=== PATIENT | female | born 1985 | race Caucasian/White ===

== ENCOUNTER → 2016-10-05 | Outpatient (CLI) | payer BC ==
[~2016-10-05] MED LIST: PRENTAB26 PO
[2016-10-05 11:53] LABS: URINE APPEARANCE CLEAR (CLEAR); URINE BILIRUBIN NEG (NEG); URINE COLOR YELLOW; URINE NITRITE NEG (NEG); URINE PH 7.5 (4.5-7.5); URINE SPECIFIC GRAVITY 1.005 (1.000-1.030); UROBILINOGEN NEG (NEG)
[2016-10-05 12:00] LABS: MANUAL MICROSCOPIC REQUIRED? NO; REVIEW REQ? NO
== END | disposition home or self-care (01) ==
LOC: C.LABSPEC 11:15
PROVIDERS: ATTEND Obstetrics & Gynecology
DX: Z34.00 Encounter for supervision of normal first pregnancy, unspecified trimester (principal)

== ENCOUNTER → 2016-10-12 | Outpatient (CLI) | payer BC ==
[2016-10-12 09:56] LABS: BASO % 0.3 %; BASO ABS # 0.03 K/uL (0-0.2); COMPLETE YES; EOS % 1.2 %; HEMATOCRIT 35.6 % (37-47); IG% 0.2 %; LYMPH % 16.1 %; LYMPH ABS # 1.69 K/uL (1.2-3.4); MEAN CORPUSCULAR HEMOGLOBIN 29.1 pg (25-34); MEAN CORPUSCULAR HGB CONC 35.1 g/dl (32-36); MEAN PLATELET VOLUME 10.5 fL (7.4-10.4); MONO % 7.7 %; NEUT % 74.5 %; PLATELET COUNT 265 K/uL (130-400); RED BLOOD COUNT 4.29 M/uL (4.2-5.4); WHITE BLOOD COUNT 10.48 K/uL (4.8-10.8)
[2016-10-14 01:41] LABS: CHLAMYDIA TRACH RNA*** NOT DETECTED (NOT DETECTED); GC (NEIS GONORRHOEAE)RNA** NOT DETECTED (NOT DETECTED)
== END | disposition home or self-care (01) ==
LOC: C.LAB1850 08:57
PROVIDERS: ATTEND Obstetrics & Gynecology
DX: Z34.00 Encounter for supervision of normal first pregnancy, unspecified trimester (principal)

== ENCOUNTER → 2016-10-16 | Outpatient (CLI) | payer BC ==
--- NOTE | 2016-10-16 13:03 | MAMMOGRAPHY REPORT ---
ULTRASOUND OF RIGHT BREAST: 10/16/2016 CLINICAL HISTORY: The patient reports that her doctor felt a palpable lump in the right breast durin g a physical exam. She reports that she is 9 weeks . Her mother was diagnosed with breast cancer in her 40s. COMPARISON: No prior exams were available for comparison. TECHNIQUE: Real-time targeted ultrasound of the right breast was performed. FINDINGS: Real-time, high-resolution targeted ultrasound was performed of the area of the palpable lump pointed out by the patient. She could not clearly feel the palpable lump but pointed to the ge neral region of the lump in the right 6:00 breast (the physician order did not note a specific locat ion). Targeted ultrasound of the right 6 through 9:00 breast demonstrates no suspicious masses or o ther suspicious sonographic abnormalities. The patient also noted pain in the right 9:00 and 6:00 r egion; ultrasound shows no suspicious abnormalities in the region of pain. IMPRESSION: ACR BI-RADS CATEGORY 1: NEGATIVE No suspicious sonographic abnormality in the general region of the palpable lump pointed out by the patient in the right 6:00 breast. There is no sonographic evidence of malignancy. Recommend clinic al follow-up; any decision to biopsy should be based on clinical grounds. The patient was verbally notified of the results. Matilda Hong M.D. /:10/16/2016 10:22:30 Branding Specialist: Matilda Hong MD, [facility] letter sent: Normal 1/2 BI-RADS Code: ACR BI-RADS Category 1: Negative
== END | disposition home or self-care (01) ==
LOC: C.MAMM 09:46
PROVIDERS: ATTEND Obstetrics & Gynecology
DX: O26.891 Other specified pregnancy related conditions, first trimester (principal); N63 Unspecified lump in breast; Z3A.01 Less than 8 weeks gestation of pregnancy

== ENCOUNTER → 2016-11-09 | Outpatient (CLI) | payer BC ==
[2016-11-10 11:30] LABS: URINE APPEARANCE CLEAR (CLEAR); URINE BILIRUBIN NEG (NEG); URINE COLOR YELLOW; URINE NITRITE NEG (NEG); URINE SPECIFIC GRAVITY 1.013 (1.000-1.030); UROBILINOGEN NEG (NEG)
[2016-11-10 11:31] LABS: MANUAL MICROSCOPIC REQUIRED? YES; REVIEW REQ? NO; URINE BACTERIA NEG (NEG); URINE RBC 0-4 /hpf (0-4)
== END | disposition home or self-care (01) ==
LOC: C.LABSPEC 11:05
PROVIDERS: ATTEND Obstetrics & Gynecology
DX: Z34.00 Encounter for supervision of normal first pregnancy, unspecified trimester (principal)

== ENCOUNTER → 2016-12-08 | Outpatient (CLI) | payer BC ==
[2016-12-08 13:33] LABS: GTGD 50 Grams
== END | disposition home or self-care (01) ==
LOC: C.LAB1850 08:53
PROVIDERS: ATTEND Obstetrics & Gynecology
DX: Z34.02 Encounter for supervision of normal first pregnancy, second trimester (principal)

== ENCOUNTER → 2016-12-14 | Outpatient (CLI) | payer BC ==
[2016-12-15 14:38] LABS: AFP CONCENTRATION 48.6 NG/ML; AFP MULTIPLE OF MEDIAN 1.13; AFPTS GESTATIONAL AGE 17.3 WEEKS; AFPTS INSULIN DEP DIABETIC? NO; AFPTS MATERNAL WT 129 LBS; ALPHA-FETOPROTEIN RACE CAUCASIAN=W; HISTORY OF NTD NO; REPEAT SAMPLE? NO
== END | disposition home or self-care (01) ==
LOC: C.LAB1850 07:23
PROVIDERS: ATTEND Obstetrics & Gynecology
DX: O28.9 Unspecified abnormal findings on antenatal screening of mother (principal); Z3A.00 Weeks of gestation of pregnancy not specified

== ENCOUNTER 2017-02-01 17:19 | Emergency (ER) | payer BC, OTHER ==
[~2017-02-01] VITALS: Ht 162.6 cm; Wt 62.6 kg
[2017-02-01 17:33] VITALS: Ht 162.6 cm; Wt 62.6 kg
[2017-02-01] MEDS ORDERED: PRENTAB26 PO (17:56)
[2017-02-01 18:50] LABS: BASO % 0.4 %; BASO ABS # 0.04 K/uL (0-0.2); COMPLETE YES; EOS % 1.7 %; HEMATOCRIT 31.8 % (37-47); IG% 0.5 %; LYMPH % 19.4 %; LYMPH ABS # 2.18 K/uL (1.2-3.4); MEAN CELL VOLUME 88.8 fL (80-100); MEAN CORPUSCULAR HEMOGLOBIN 29.9 pg (25-34); MEAN CORPUSCULAR HGB CONC 33.6 g/dl (32-36); MEAN PLATELET VOLUME 10.5 fL (7.4-10.4); MONO % 9.2 %; NEUT % 68.8 %; PLATELET COUNT 207 K/uL (130-400); RED BLOOD COUNT 3.58 M/uL (4.2-5.4); WHITE BLOOD COUNT 11.25 K/uL (4.8-10.8)
[2017-02-01 18:50] LABS: MANUAL MICROSCOPIC REQUIRED? NO; REVIEW REQ? NO; URINE APPEARANCE CLEAR (CLEAR); URINE BILIRUBIN NEG (NEG); URINE COLOR YELLOW; URINE NITRITE NEG (NEG); URINE PH 6.5 (4.5-7.5); URINE SPECIFIC GRAVITY 1.011 (1.000-1.030); UROBILINOGEN NEG (NEG); ZZUR CULT IF INDIC CLEAN CATCH NO
[2017-02-01 19:13] LABS: ALT/SGPT 16 U/L (12-78); AST/SGOT 11 U/L (15-37); BLOOD UREA NITROGEN 11 mg/dl (7-18); BUN/CREATININE RATIO 18.3 (10-20); CALCIUM 8.8 mg/dl (8.5-10.1); CARBON DIOXIDE 26 mmol/L (21-32); CHLORIDE 107 mmol/L (98-107); GLUCOSE 78 mg/dl (70-99); POTASSIUM 3.9 mmol/L (3.5-5.1); SODIUM 140 mmol/L (136-145)
[2017-02-01 19:16] LABS: ALKALINE PHOSPHATASE 69 U/L (45-117)
[2017-02-01 19:59] VITALS: BP 128/74; PULSE 74; TEMP 36.6; O2SAT 100
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
== END 2017-02-01 20:00 | disposition home or self-care (01) ==
LOC: C.EDB 17:21 → C.EDA 20:00
DX: S39.91XA Unspecified injury of abdomen, initial encounter (principal); O9A.212 Injury, poisoning and certain other consequences of external causes complicating pregnancy, second trimester; Z3A.24 24 weeks gestation of pregnancy; V43.52XA Car driver injured in collision with other type car in traffic accident, initial encounter

== ENCOUNTER → 2017-03-01 | Outpatient (CLI) | payer BC ==
[2017-03-01 18:24] LABS: URINE APPEARANCE CLEAR (CLEAR); URINE BILIRUBIN NEG (NEG); URINE COLOR YELLOW; URINE NITRITE NEG (NEG); URINE SPECIFIC GRAVITY 1.016 (1.000-1.030); UROBILINOGEN NEG (NEG)
[2017-03-01 18:27] LABS: MANUAL MICROSCOPIC REQUIRED? NO; REVIEW REQ? NO
== END | disposition home or self-care (01) ==
LOC: C.LABSPEC 17:55
PROVIDERS: ATTEND Obstetrics & Gynecology
DX: Z34.02 Encounter for supervision of normal first pregnancy, second trimester (principal)

== ENCOUNTER → 2017-03-05 | Outpatient (CLI) | payer BC ==
[2017-03-05 09:34] LABS: HEMATOCRIT 33.9 % (37-47)
== END | disposition home or self-care (01) ==
LOC: C.LAB1850 07:12
PROVIDERS: ATTEND Obstetrics & Gynecology
DX: Z34.02 Encounter for supervision of normal first pregnancy, second trimester (principal)

== ENCOUNTER 2017-04-26 17:21 | Outpatient (CLI) | payer BC ==
[~2017-04-26] VITALS: Ht 162.6 cm; Wt 69.0 kg
[2017-04-26 18:18] VITALS: Ht 162.6 cm; Wt 69.0 kg
== END 2017-04-26 18:21 | disposition home or self-care (01) ==
LOC: C.OPB 17:21 → C.LD 17:22 → C.OPB 18:21
PROVIDERS: ATTEND Obstetrics & Gynecology
DX: O24.419 Gestational diabetes mellitus in pregnancy, unspecified control (principal); O36.5990 Maternal care for other known or suspected poor fetal growth, unspecified trimester, not applicable or unspecified; Z3A.00 Weeks of gestation of pregnancy not specified

== ENCOUNTER → 2017-04-26 | Outpatient (CLI) | payer BC | END | disposition home or self-care (01) | LOC: C.LABSPEC 18:03 | PROVIDERS: ATTEND Obstetrics & Gynecology | DX: Z34.03 Encounter for supervision of normal first pregnancy, third trimester (principal); Z3A.00 Weeks of gestation of pregnancy not specified ==

== ENCOUNTER 2017-04-29 10:21 | Inpatient (IN) | payer BC ==
[~2017-04-29] VITALS: Ht 162.6 cm; Wt 68.2 kg
[2017-04-29 10:47] VITALS: Ht 162.6 cm; Wt 68.2 kg
--- NOTE | 2017-04-29 14:15 | DIAGNOSTIC IMAGING REPORT ---
ULTRASOUND BIO PROF W/O NST-SINGLE CLINICAL HISTORY: nonreassuring FHT, IUGR COMPARISON STUDY: No previous studies for comparison. FINDINGS: A single live fetus in cephalic presentation was identified. The placenta was right posterior. The heart rate was 126. The cervix was closed. The fluid index is 19 cm. The fetus received 2 points for flexion, tone, breathing, and fluid. IMPRESSION: Biophysical profile score of 8 out of 8 points Electronically signed by: Willem Alvarez M.D. 04/29/2017 2:13 PM Dictated Date/Time: 04/29/2017 2:11 PM
[2017-04-29] MEDS ORDERED: LACTATED RINGER'S 1000ML 1,000 ML IV PRN (20:33)
[2017-04-29 21:00] LABS: HEMATOCRIT 33.8 % (37-47); MEAN CELL VOLUME 86.2 fL (80-100); MEAN CORPUSCULAR HEMOGLOBIN 29.6 pg (25-34); MEAN CORPUSCULAR HGB CONC 34.3 g/dl (32-36); MEAN PLATELET VOLUME 11.7 fL (7.4-10.4); PLATELET COUNT 172 K/uL (130-400); RED BLOOD COUNT 3.92 M/uL (4.2-5.4); WHITE BLOOD COUNT 13.23 K/uL (4.8-10.8)
[2017-04-30] MEDS ORDERED: LACTATED RINGER'S 1000ML 500 ML IV PRN ×2 (07:05→10:19)
[2017-04-30] MEDS ORDERED: OXYTOCIN 30 UNITS/500ML NSS IV PRN ×2 (07:15→15:15)
[2017-04-30] MEDS: LACTATED RINGER'S 1000ML 1,000 ML IV SCH ×2 (08:02→10:28)
[2017-04-30] MEDS ORDERED: FENTANYL 2MCG/ML ROPIV 1.25MG/ML 100ML BAG EPI ONE (09:25)
[2017-04-30] MEDS ORDERED: FENTANYL CITRATE INJ 50 MCG/1 ML 2 ML VIAL ONE (09:25)
[2017-04-30] MEDS ORDERED: BUPIVACAINE 0.25% 30 ML VIAL ONE (09:25)
[2017-04-30] MEDS ORDERED: EpHEDrine SULFATE INJ 50 MG/ML AMP ONE (09:25)
[2017-04-30] MEDS ORDERED: NALOXONE HCL INJ 1 MG in SODIUM CHLORIDE 0.9% 1000ML 1,000 ML IV PRN ×4 (10:19)
[2017-04-30] MEDS ORDERED: EpHEDrine SULFATE INJ 50 MG/ML AMP IV PRN (10:30)
[2017-04-30] MEDS ORDERED: NALBUPHINE HCL INJ 10 MG/ML AMP IV PRN (10:30)
[2017-04-30] MEDS ORDERED: FENTANYL 2MCG/ML ROPIV 1.25MG/ML 100ML BAG EPI PRN (10:30)
[2017-04-30] MEDS ORDERED: DiphenhydrAMINE HCL 50 MG/ML VIAL IV PRN (10:30)
[2017-04-30] MEDS ORDERED: ONDANSETRON INJ 2 MG/ML 2 ML VIAL IV PRN (10:30)
[2017-04-30] MEDS ORDERED: NALOXONE HCL INJ 0.4 MG/1 ML VIAL/CARP IV PRN (10:30)
[2017-04-30] MEDS ORDERED: PROMETHAZINE HCL INJ 25 MG in SODIUM CHLORIDE 0.9% 50ML 50 ML IV PRN (10:30)
[2017-04-30] MEDS ORDERED: OXYCODONE/ACETAMINOPHEN 5-325 TAB PO PRN (15:15)
[2017-04-30] MEDS ORDERED: SUPERCREAM 0.870 % 15GM JAR EXT PRN (15:15)
[2017-04-30] MEDS ORDERED: HYDROCORTISONE ACETATE 25 MG SUPP PR PRN (15:15)
[2017-04-30] MEDS ORDERED: ACETAMINOPHEN/CODEINE 300/30MG TAB PO PRN ×2 (15:15)
[2017-04-30] MEDS ORDERED: ACETAMINOPHEN 325 MG TAB PO PRN (15:15)
[2017-04-30] MEDS ORDERED: LANOLIN OINT EXT PRN ×2 (15:15)
[2017-04-30] MEDS ORDERED: BENZOCAINE 20% AER SPR 82.5 GM CAN EXT PRN (15:15)
[2017-04-30] MEDS ORDERED: DIPHTHERIA/TETANUS/PERTUSSIS 0.5 ML SYR/VIAL IM. ONE (15:15)
--- NOTE | 2017-04-30 15:22 | DELIVERY SUMMARY ---
DATE OF OPERATION: 04/30/2017 INDICATIONS FOR PROCEDURE: Maribel was induced by Dr. Stallworth on April 29. She delivered on April 30. She was induced for IUGR and a nonreassuring heart rate tracing. She was 36 weeks and 6 days. This was a nonelective induction. DESCRIPTION OF PROCEDURE: The patient was given IV Pitocin and then progressed to fully dilated, delivered a baby in right occiput anterior position. Clear fluid. No nuchal cord. Mouth and nares suctioned with bulb and then baby delivered with gentle traction, no excess force used, live vigorous female infant. Cord clamped and cut. Cord gases obtained. Cord blood obtained. Cord collection performed. Placenta removed with gentle traction. Second degree tear repaired with 3-0 Vicryl. Sponge and instrument counts correct. Estimated blood loss 150 mL. IV Pitocin used for hemostasis. I attest to the content of the Intraoperative Record and any orders documented therein. Any exception s are noted below.
--- NOTE | 2017-04-30 18:00 | Anesthesia Procedure Note ---
Anesthesia Epidural Removal Nt Date & Time Apr 30, 2017 at 17:59 Vital Signs Pain Intensity: 10.0 Notes Mental Status: alert / awake / arousable, participated in evaluation Nausea / Vomiting: adequately controlled Pain: adequately controlled Airway Patency, RR, SpO2: stable & adequate BP & HR: stable & adequate Hydration State: stable & adequate Neuraxial Anesthesia: was administered Anesthetic Complications: no major complications apparent, pt satisfied with anesthetic care Epidural: removed without complications, with tip intact
[2017-04-30] MEDS: IBUPROFEN 600 MG TAB PO PRN (18:55)
[2017-04-30] MEDS: DOCUSATE SODIUM 100 MG CAP PO SCH (20:23)
[2017-04-30 20:30] VITALS: BP 117/78; PULSE 70; TEMP 36.9; O2SAT 98
[2017-04-30 23:50] VITALS: BP 122/77; PULSE 68; TEMP 36.5; O2SAT 98
[2017-05-01] MEDS: IBUPROFEN 600 MG TAB PO PRN ×7 (00:01→23:58)
[2017-05-01 04:05] VITALS: BP 124/77; PULSE 66; TEMP 36.5
[2017-05-01 06:56] VITALS: BP 126/86; PULSE 84; TEMP 36.7; O2SAT 98
--- NOTE | 2017-05-01 07:26 | Progress Note ---
Subjective May 01, 2017. Subjective conversation w/ patient, physical exam, chart review, lab review Ambulation: limited ambulation (to bathroom thus far) Voiding: no voiding problems Passing Gas: Yes Diet Tolerance: Clear Liquids Lochia: Small Feeding Type: Breast Feeding Pain: Notes some minimal low abd cramping Comment: Found pt resting comfortably, denies any acute concerns. Review of Systems Constitutional: No fever, No chills Respiratory: No cough, No shortness of breath Cardiac: No chest pain, No edema Abdomen: No nausea, No vomiting, No diarrhea Female : No dysuria Objective Vital Signs Date Time Temp Pulse Resp B/P (MAP) Pulse Ox O2 Delivery O2 Flow Rate FiO2 05/01/17 04:05 36.5 66 19 124/77 (93) Room Air 04/30/17 23:50 98 Room Air 04/30/17 23:50 36.5 68 20 122/77 (92) Room Air 04/30/17 20:30 36.9 70 18 117/78 (91) 98 Room Air 04/30/17 20:30 Room Air Physical Exam General Appearance: WELL-APPEARING, WD/WN, NO APPARENT DISTRESS Respiratory/Chest: lungs clear, normal breath sounds, no respiratory distress Cardiovascular: regular rate, rhythm, no edema, no murmur Abdomen: normal bowel sounds, non tender, soft Fundus: Firm, Non-Tender, Relation to Umbilicus (approx one down) Extremities: normal range of motion, no pedal edema, no calf tenderness Laboratory Results Last 24 Hours Test 05/01/17 06:58 Assessment and Plan Post- Day#: 1 Continue Routine Care: 31F s/p vaginal delivery, now PPD #1. - Blood type O positive. GBS negative. Rubella immune. - Vital signs reviewed and stable. - Pain controlled with motrin. - No leg swelling or tenderness on calf palpation. Encourage ambulation. - Encourage breast feeding. - Hemoglobin pre-delivery 11.6, post-delivery pending this am. Bleeding has improved. Continue to monitor clinically. - Continue routine post-vaginal delivery care. - Pt agreed with above plan, all current questions answered. Robert Browning MD, PGY1 [employer] Laboratory Assistant Physician Supervision Note: I interviewed and examined the patient. Discussed with Dr. Browning and agree with findings and plan as documented in the note. Any exceptions or clarifications are listed here: Agree Documented By: Laureen Ramirez Resident Tracking Resident Involvement: Resident Care Provided Care Provided: OB Delivery (OB rounds)
[2017-05-01 07:32] LABS: HEMATOCRIT 34.3 % (37-47)
[2017-05-01] MEDS: PRENATAL VITAMIN TAB PO SCH (07:43)
[2017-05-01] MEDS: DOCUSATE SODIUM 100 MG CAP PO SCH ×2 (07:43→19:27)
[2017-05-01 11:19] VITALS: BP 123/76; PULSE 66; TEMP 36.4; O2SAT 100
[2017-05-01 15:55] VITALS: BP 115/76; PULSE 65; TEMP 36.7
[2017-05-01] MEDS ORDERED: BISACODYL 5 MG TABEC PO SCH (20:00)
[2017-05-01 23:59] VITALS: BP 115/73; PULSE 66; TEMP 36.5
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
--- NOTE | 2017-05-02 06:34 | Discharge Instructions ---
Discharge Instructions Date of Service May 02, 2017. Admission Reason for Admission: [place], , Non-Reassuring Electronic Discharge Discharge Diagnosis / Problem: Discharge Goals Goal(s): Routine recovery after delivery Activity Recommendations Activity Limitations: per Instructions/Follow-up section . Instructions / Follow-Up Instructions / Follow-Up ACTIVITY RECOMMENDATIONS: * Gradual return to full activity over the next 2-3 weeks. * No lifting - nothing heavier than baby over the next 2-3 weeks. * Do not engage in vigorous exercise, sexual activity or sports until cleared by your physician. * Do not drive or operate any motorized equipment until cleared by your physician. * You may shower/bathe daily. MEDICATIONS: For discomfort or pain, you may use Acetaminophen (Tylenol), Ibuprofen (Advil), or Naproxen (Aleve) following the package directions. For constipation you may use Colace following the package directions. BREAST CARE: If you are not breast feeding: * Wear a supportive bra 24 hours a day for one to two weeks. * Avoid stimulating your breasts and nipples as much as possible during the first few weeks after delivery. * When taking a shower, have the warm water hit your back, not breasts. * When your breasts feel full, apply ice packs. Usually three to four times a day helps ease the discomfort. * Take a mild pain medication (Tylenol / Motrin) when you are uncomfortable. If breast feeding: * Use breast milk to lubricate nipples. Lansinoh cream may be used for sore nipples. You do not need to remove cream prior to breast feeding. If using a different brand of cream, check the label for directions regarding removal of cream prior to nursing. * Wear a supportive bra. * If having problems with breasts or breast feeding, call a medical device sales consultant or your health care provider. EPISIOTOMY CARE: After delivery, if you have an episiotomy (stitches), the following steps will ease discomfort and aid healing. * For the first 24 hours after delivery, place ice packs next to your episiotomy to help reduce swelling. * After the first 24 hour-period, sitz baths, either portable or in the tub, are suggested. A shower with a shower arm sprayed over the episiotomy may be comforting. * Lorena care should be done after each voiding and bowel movement. Squirt warm water from a plastic bottle over the perineum (region of the body between the anus and urinary opening) and pat dry. * Use Dermoplast to ease discomfort. Shake container. [place] directly over the episiotomy. Place a Tucks on a clean sanitary pad next to your episiotomy. SPECIAL CARE INSTRUCTIONS: When you are discharged from the hospital, it is important for you to follow the instructions listed below: * During the first week at home, you should be able to care for yourself and your baby. In addition, the usual light household activities are encouraged. * Limit your activities to the way you feel. Do not try to clean the house or move furniture. Be sensible. * If you actively engage in sports and have done so up until the time of your delivery, you may resume these activities as soon as you feel able. This may take up to one month or even longer. Use good judgment. * Continue to take your vitamins for at least six weeks after the of your baby. * Your diet need not be limited unless you were on a special diet before your delivery. Breast-feeding mothers need around 2500 calories per day and at least 64-80 ounces of fluid per day (8 to 10 glasses). * You should eat foods from the four major food groups. Crash diets or fad diets are to be avoided. Eating lean meats, fresh fruits and vegetables, low-fat dairy products, high fiber foods and a regular exercise program, will help you get back to your pre- weight without putting your health at risk. * Constipation is sometimes a problem after delivery. Take a mild laxative as needed. If breast feeding, Milk of Magnesia is acceptable to use. You may use a suppository or Fleets enema if no episiotomy. * A daily shower or tub bath is suggested. Be sure to thoroughly and gently dry the perineum. * A bloody vaginal discharge will usually continue until around four weeks post . A small amount of bleeding may continue for as long as six weeks. Vaginal discharge changes from the bright red bleeding after delivery to pink then brownish and finally yellowish-pink before becoming white and disappearing. * Bleeding may increase with activity. Your first period may come in 4-8 weeks. If you are breast feeding, your period may be delayed even longer. * [place] (sex) can begin whenever both you and your partner feel comfortable and do not have any form of genital infection. It is recommended that you wait at least six weeks for internal and external healing to occur. If you have questions, please talk to your health care practitioner. A condom should be used to prevent infection and . * Foreplay, gentle intercourse and lubrication is very important the first several times to prevent pain. A water-based lubricant such as K-Y jelly or Astroglide may be used. * If you have RH negative blood and your baby is RH positive, you will receive RHOGAM by injection prior to discharge. The nurse will give you a card to keep with you that has the date and place that you received RHOGAM after delivery. * During your care, you had a Rubella screen done to check for the presence of rubella antibodies in your blood. If your test was negative, you will receive a Rubella vaccine prior to discharge. This vaccine may cause a fever, soreness at the injection site and flu-like symptoms. If these symptoms persist, notify your health care practitioner. is not advised for one month after a Rubella vaccine. * Verbalizes understanding of car seat law as reviewed with patient nursing. * Car Seat hand-out given and reviewed with patient by nursing. * Shaken baby information reviewed with patient by nursing. Call you doctor if: * Heavy bleeding (saturating several pads an hour) or passing clots the size of your fist. * A fever >101 degrees F (38.3 degrees C) on two occasions four hours apart and /or chills. * Unusual pain in the pelvic or vaginal areas. * "Baby Blues" lasting longer than two weeks. If you have any questions or concerns, call your health care practitioner at . FOLLOW UP VISIT: * Please call the office at to schedule a 6 week examination. It is important you keep this appointment. It is important for you to make arrangements for either yearly or twice yearly check-ups thereafter. Current Hospital Diet Patient's current hospital diet: Regular OB Diet Discharge Diet Recommended Diet: Regular OB Diet Pending Studies Studies pending at discharge: no Medical Emergencies . Who to Call and When: Medical Emergencies: If at any time you feel your situation is an emergency, please call 911 immediately. . Non-Emergent Contact Non-Emergency issues call your: Sand Conditioner . . "Provider Documentation" section prepared by Luke Cabrera. . VTE Core Measure Inpt VTE Proph given/why not?: Treatment not indicated
[2017-05-02 06:53] LABS: HEMATOCRIT 29.1 % (37-47); MEAN CELL VOLUME 87.4 fL (80-100); MEAN CORPUSCULAR HEMOGLOBIN 29.7 pg (25-34); MEAN PLATELET VOLUME 10.8 fL (7.4-10.4); PLATELET COUNT 168 K/uL (130-400); RED BLOOD COUNT 3.33 M/uL (4.2-5.4); WHITE BLOOD COUNT 8.89 K/uL (4.8-10.8)
[2017-05-02] MEDS ORDERED: BISACODYL 10 MG SUPP PR PRN (07:00)
[2017-05-02] MEDS: IBUPROFEN 600 MG TAB PO PRN ×2 (07:43→13:14)
[2017-05-02 07:50] VITALS: BP 121/75; PULSE 85; TEMP 36.5
[2017-05-02] MEDS: PRENATAL VITAMIN TAB PO SCH (08:00)
[2017-05-02] MEDS: DOCUSATE SODIUM 100 MG CAP PO SCH (08:00)
== END 2017-05-02 17:10 | disposition home or self-care (01) | DRG 775 ==
LOC: C.LD 10:21 → C.OPB 10:21 → C.LD 20:33 → C.OPB 20:33 → C.OBG 04-30 19:54
PROVIDERS: ADMIT Obstetrics & Gynecology; ATTEND Obstetrics & Gynecology
PROC: 3E0P7GC Introduction of Other Therapeutic Substance into Female Reproductive, Via Natural or Artificial Opening (ICD-10-PCS; 2017-04-29)
PROC: 10E0XZZ Delivery of Products of Conception, External Approach (ICD-10-PCS; principal; 2017-04-30)
PROC: 0KQM0ZZ Repair Perineum Muscle, Open Approach (ICD-10-PCS; principal; 2017-04-30)
DX: O76 Abnormality in fetal heart rate and rhythm complicating labor and delivery (principal); S39.91XA Unspecified injury of abdomen, initial encounter; O36.5930 Maternal care for other known or suspected poor fetal growth, third trimester, not applicable or unspecified; O9A.22 Injury, poisoning and certain other consequences of external causes complicating childbirth; O70.1 Second degree perineal laceration during delivery; Z37.0 Single live birth; O24.420 Gestational diabetes mellitus in childbirth, diet controlled; Z3A.36 36 weeks gestation of pregnancy; V49.9XXA Car occupant (driver) (passenger) injured in unspecified traffic accident, initial encounter

== ENCOUNTER → 2018-03-02 | Outpatient (CLI) | payer OTHER ==
[2018-03-02 12:37] LABS: BASO % 0.7 %; BASO ABS # 0.05 K/uL (0-0.2); EOS % 3.1 %; EOS ABS # 0.22 K/uL (0-0.5); HEMATOCRIT 38.2 % (37-47); HEMOGLOBIN 12.9 g/dL (12.0-16.0); IG# 0.03 K/uL (0.00-0.02); LYMPH % 30.7 %; LYMPH ABS # 2.19 K/uL (1.2-3.4); MEAN CELL VOLUME 84.9 fL (80-100); MEAN CORPUSCULAR HEMOGLOBIN 28.7 pg (25-34); MEAN CORPUSCULAR HGB CONC 33.8 g/dl (32-36); MEAN PLATELET VOLUME 10.8 fL (7.4-10.4); MONO ABS # 0.57 K/uL (0.11-0.59); NEUT % 57.1 %; NEUT ABS # 4.08 K/uL (1.4-6.5); PLATELET COUNT 259 K/uL (130-400); RED CELL DISTRIBUTION WIDTH CV 13.6 % (11.5-14.5); RED CELL DISTRIBUTION WIDTH SD 41.8 fL (36.4-46.3); WHITE BLOOD COUNT 7.14 K/uL (4.8-10.8)
[2018-03-02 12:53] LABS: BLOOD UREA NITROGEN 18 mg/dl (7-18); CALCIUM 8.9 mg/dl (8.5-10.1); CARBON DIOXIDE 26 mmol/L (21-32); CREATININE 0.79 mg/dl (0.60-1.20); GLUCOSE 81 mg/dl (70-99); POTASSIUM 4.2 mmol/L (3.5-5.1); SODIUM 138 mmol/L (136-145)
== END | disposition home or self-care (01) ==
LOC: C.LABBFT 07:38
PROVIDERS: ATTEND Nurse Practitioner
DX: R51 Headache (principal)

== ENCOUNTER → 2018-03-04 | Outpatient (CLI) | payer OTHER ==
[~2018-03-04] MED LIST changes: +OPTIRAY 320 IV PRN
--- NOTE | 2018-03-04 10:07 | DIAGNOSTIC IMAGING REPORT ---
ANGIOGRAPHY HEAD COMBO CLINICAL HISTORY: 32 years-old Female presenting with SCAN ANGIO HEAD COMBO PER PBS(KF). TECHNIQUE: Multidetector CT angiography of the head was performed after the administration of intravenous contrast. 3-D volumetric and/or maximum intensity projection (MIP) images were subsequently reconstructed for review. IV contrast: None. A dose lowering technique was used consistent with the principles of ALARA (as low as reasonably achievable). COMPARISON: None. CT DOSE (mGy.cm): The estimated cumulative dose is 637.65 mGy.cm. FINDINGS: Logistical Engineer topogram: Unremarkable. NONCONTRAST CT HEAD: Ventricles and sulci normal in size. Brain parenchyma normal in appearance with preserved robertson-white differentiation. No mass effect or midline shift. No hemorrhage or acute territorial infarct. No extra-axial fluid collection. Paranasal sinuses and mastoid air cells clear. Calvarium intact. CTA HEAD: Anterior circulation: Intracranial portions of the internal carotid arteries patent to the level of the termini. Anterior and middle cerebral arteries patent. Anterior communicating artery patent. Posterior circulation: Codominant vertebral arteries. Intradural portions of the vertebral arteries patent. Posterior inferior cerebellar arteries patent. Basilar artery patent. Anterior inferior cerebellar arteries poorly visualized. Superior cerebellar and posterior cerebral arteries patent. Posterior communicating arteries patent. Dural venous sinuses: Patent. Other: Allowing for the phase of contrast, brain parenchyma within normal limits. Calvarium intact. Upper cervical spine normal. IMPRESSION: 1. No acute intracranial abnormality. 2. No evidence of aneurysm, focal vessel occlusion, or significant stenosis of the intracranial arteries. Electronically signed by: Stephen Freire M.D. 03/04/2018 10:05 AM Dictated Date/Time: 03/04/2018 10:00 AM
== END | disposition home or self-care (01) ==
LOC: C.CTS 09:37
PROVIDERS: ATTEND Nurse Practitioner
DX: R51 Headache (principal)

== ENCOUNTER 2019-01-11 05:52 | Inpatient (IN) ==
[2019-01-11] MEDS ORDERED: OXYTOCIN 30 UNITS/500 ML BAG IV PRN ×2 (07:40→13:28)
[2019-01-11] MEDS: LACTATED RINGER'S 1,000 ML IV PRN ×3 (07:41→09:59)
[2019-01-11] MEDS ORDERED: BUPIVACAINE 0.25% 30 ML VIAL ONE (07:50)
[2019-01-11] MEDS ORDERED: fentaNYL citrate 100 MCG/2 ML VIAL ONE (07:51)
[2019-01-11] MEDS ORDERED: ePHEDrine sulfate 50 MG/ML AMP ONE (07:51)
[2019-01-11] MEDS ORDERED: fentaNYL 2MCG/ML ROPIV 1.25MG/ML 100 ML BAG EPI ONE (07:52)
[2019-01-11] MEDS ORDERED: NALOXONE HCL 0.4 MG/1 ML VIAL/CARP IV PRN (08:23)
[2019-01-11] MEDS ORDERED: PROMETHAZINE HCL 6.25 MG in SODIUM CHLORIDE 0.9% 50 ML IV PRN (08:23)
[2019-01-11] MEDS ORDERED: NALOXONE HCL 1 MG in SODIUM CHLORIDE 0.9% 1000ML 1,000 ML IV PRN (08:23)
[2019-01-11] MEDS ORDERED: NALBUPHINE HCL INJ 10 MG/ML AMP IV PRN (08:23)
[2019-01-11] MEDS ORDERED: DiphenhydrAMINE HCL 50 MG/ML VIAL IV PRN (08:23)
[2019-01-11] MEDS ORDERED: ePHEDrine sulfate 50 MG/ML AMP IV PRN (08:23)
[2019-01-11] MEDS ORDERED: ONDANSETRON INJ 2 MG/ML 2 ML VIAL IV PRN (08:23)
[2019-01-11] MEDS ORDERED: fentaNYL 2MCG/ML ROPIV 1.25MG/ML 100 ML BAG EPI PRN (08:23)
--- NOTE | 2019-01-11 08:23 | Anesthesiology Consultation ---
Date of Service January 11, 2019 @ 39 weeks Gestational DM Assessment & Plan (1) Encounter for pre-operative examination: Chart Review Chart Review: Acceptable Risk for Surgery and Patient NOT seen in Pre Admission Testing Consults Requested none ASA ASA2 Proposed Anesthesia Anesthesia Type: Labor Epidural Risk / Benefits Reviewed With: PT / POA / Parent / Guardian, Accepts Plan and Informed Consent Obtained History Height/Weight Height: 5 ft 4 in Weight: 73.028 kg Allergies Allergy/AdvReac Type Severity Reaction Status Date / Time cat dander Allergy Intermediate RASH Verified 04/29/17 10:42 Medications Home Medications Medication Instructions Recorded Confirmed Last Taken vit no.[id number] 1 tab PO DAILY 01/11/19 01/11/19 01/11/19 [ Vitamin] Active Medications Generic Name Dose Route Start Last Admin Trade Name Freq PRN Reason Stop Dose Admin Lactated Ringer's 1,000 mls @ 125 mls/hr 01/11/19 07:40 01/11/19 07:41 Lr IV 01/13/19 07:39 999 mls/hr .Q8H PRN Administration L&D Protocol Protocol Past Medical History Medical History Kidney stones [place] teeth removed Exercise / Class Metabolic Activity II 4-5 Yardwork/Stairs/Walk up hill Past Surgical History Surgical History History of colposcopy Past Anesthesia History No Hx of Anesthesia Complications and No Family Hx of Anesthesia Complications History of PONV No Hx of PONV and No Hx of Motion Sickness Social History Smoking Status: Never smoker Hx Alcohol Use: No Hx Substance Use: No substance use type: does not use Physical Exam Vital Signs Last Vital Signs Temp 36.4 C L 01/11/19 07:24 Pulse 90 01/11/19 08:20 Resp 20 01/11/19 07:24 BP 109/55 L 01/11/19 08:20 Pulse Ox 99 01/11/19 08:17 ENMT Mouth: no dentition abnormality Thyromental Distance: > or= 3.5 Finger Breadths Mallampati Class: II Neck normal visual inspection Respiratory normal respiratory effort Auscultation: lungs clear to auscultation bilaterally Cardiovascular Rate/Rhythm: regular rate and regular rhythm Psychiatric Orientation: alert
--- NOTE | 2019-01-11 08:33 | History & Physical Report ---
Date of Service January 11, 2019 Assessment & Plan (1) 39 weeks gestation of : admit, fetus category one, arom/pit as needed. anticipate . (2) Gestational diabetes: check admission sugar. History of Present Illness Chief Complaint: contractions Primary Care Provider: Seema Beal MD Patient is a 33yowf with iup at 39 3/7 weeks who presents to labor and delivery with contractions. no lof/vb. +fm complicated by well controlled GDM. labs-O+/ab-/ri/rprnr/hepb-/hiv-/gc/ct-/panorama neg/ treated as gdm as previous gdm. Allergies Allergy/AdvReac Type Severity Reaction Status Date / Time cat dander Allergy Intermediate RASH Verified 04/29/17 10:42 Home Medications Home Medications Medication Instructions Recorded Confirmed Type vit no.[id number] 1 tab PO DAILY 01/11/19 01/11/19 History [ Vitamin] Patient History Medical History Kidney stones [place] teeth removed Surgical History History of colposcopy Social History Preferred Language: Serbian Slip Cover Cutter Required: No Beliefs That Will Affect Care: None marital status: Current Living Situation: Spouse Current Living Situation Comment: and child Other Information That Helps Us Care for You: No Feels Safe at Home: Yes Safety Concerns: Feels Safe At This Time Smoking Status: Never smoker Hx Alcohol Use: No Hx Substance Use: No OB History g1--04/27, , 5#6oz, gdm, iugr [employer]SO[employer]ER History no std, hx of colpo in 2012 Review of Systems All systems reviewed & are unremarkable except as noted in HPI & below Physical Exam Constitutional: WD/WN, vitals as above Cardiovascular: Extremities: no calf tenderness and no edema Gastrointestinal (Abdomen): soft, nt, gravid Genitourinary: cx--4/90/-2, bulging bag toco--q2-3min efm--130s with mod variability, accels to 160s, no decels. Results & Data Vital Signs (Past 12 Hours) Vital Signs Temp Pulse Resp BP Pulse Ox 01/11/19 08:24 74 99/50 L 01/11/19 08:22 77 109/57 L 97 01/11/19 08:20 90 109/55 L 01/11/19 08:18 87 115/57 L 01/11/19 08:17 88 99 01/11/19 08:16 75 129/67 01/11/19 08:12 90 99 01/11/19 08:07 88 98 01/11/19 08:05 83 138/73 01/11/19 08:02 91 H 99 01/11/19 07:24 36.4 C L 20 01/11/19 07:21 90 135/74 01/11/19 06:10 36.8 C 18 01/11/19 06:04 88 130/71
[2019-01-11 08:36] LABS: Hematocrit (blood only) 32.6 % (37-47); Mean Corpuscular Volume 84.7 fL (80-100); Mean Platelet Volume 11.6 fL (7.4-10.4); Platelet Count 145 K/uL (130-400); RDW Coefficient of Variation 14.1 % (11.5-14.5); RDW Standard Deviation 43.2 fL (36.4-46.3); Red Blood Count 3.85 M/uL (4.2-5.4); White Blood Count 15.58 K/uL (4.8-10.8)
[2019-01-11 08:49] LABS: Mean Corpuscular Hgb Conc 33.7 g/dL (32-36)
[2019-01-11 13:13] VITALS: O2SAT 98
[2019-01-11] MEDS ORDERED: BISACODYL 10 MG SUPP PR PRN (13:28)
[2019-01-11] MEDS ORDERED: SUPERCREAM 0.870% 15 GM JAR EXT PRN (13:28)
[2019-01-11] MEDS ORDERED: OXYCODONE/ACETAMINOPHEN 5mg/325mg TAB PO PRN (13:28)
[2019-01-11] MEDS ORDERED: BENZOCAINE 20% AER SPR 82.5 GM CAN EXT PRN (13:28)
[2019-01-11] MEDS ORDERED: HYDROCORTISONE ACETATE 25 MG SUPP PR PRN (13:28)
[2019-01-11] MEDS ORDERED: ACETAMINOPHEN 325 MG TAB PO PRN (13:28)
--- NOTE | 2019-01-11 15:12 | Delivery Summary ---
DATE OF OPERATION: 01/11/2019 The patient is a 33-year-old 2, para 1-0-0-1 white female who presents at 39 and 3/7 weeks with spontaneous regular contractions starting about 0100 hours. She received effective epidural analgesia. Membranes ruptured spontaneously for clear fluid. She progressed to full dilation and pushed effectively over intact perineum for viable male . Mouth and nasopharynx were suctioned on the perineum. The rest of the delivered easily and was placed on the mother's abdomen for attention and drying. There was vigorous crying and the infant was moving all 4 limbs. After cord blood donation was obtained, the placenta was expressed intact with a 3-vessel cord. A first-degree perineal laceration was repaired with 3-0 chromic in the usual fashion. Blood loss was 200 mL. Mother and infant were doing well after delivery. I attest to the content of the Intraoperative Record and any orders documented therein. Any exception s are noted below.
--- NOTE | 2019-01-11 15:47 | Anesthesia Procedure Note ---
Date of Service January 11, 2019 Anesthesia Post Epidural Note Vital Signs Vital Signs: Temp Pulse Resp BP Pulse Ox 36.5 C 101 H 20 123/65 98 01/11/19 11:02 01/11/19 15:40 01/11/19 13:10 01/11/19 15:40 01/11/19 13:12 Pain Intensity Abdomen: Pain Intensity: 0 Notes Mental Status: alert / awake / arousable Nausea / Vomiting: adequately controlled Pain: adequately controlled Airway Patency, RR, SpO2: stable & adequate BP & HR: stable & adequate Hydration State: stable & adequate Neuraxial Anesthesia: was administered and sensory block is resolving Anesthetic Complications: no major complications apparent and Pt Satisfied with anesthetic care Epidural: Removed without complications and With tip intact
[2019-01-11] MEDS: IBUPROFEN 600 MG TAB PO PRN ×2 (17:29→21:31)
[2019-01-11] MEDS: DOCUSATE SODIUM 100 MG CAP PO SCH (21:31)
[2019-01-12] MEDS: IBUPROFEN 600 MG TAB PO PRN ×4 (03:20→17:01)
--- NOTE | 2019-01-12 06:47 | Obstetrical Progress Note ---
Date of Service January 12, 2019 Assessment & Plan (1) Encounter for care and examination after delivery: satisfactory course requesting discharge today follow up ion 6 weeks Present on Admission?: No Day #:: 1 Subjective Ambulation: ambulating normally Voiding: no voiding problems Passing Gas:: Yes Diet Tolerance:: regular diet Lochia:: Small Feeding Type:: breast feeding Review of Systems All systems reviewed & are unremarkable except as noted in HPI & below Physical Exam Constitutional WD/WN, vitals as above Gastrointestinal (Abdomen) normal bowel sounds, soft, nontender, no hepatosplenomegaly Musculoskeletal no calf tenderness Genitourinary OB Exam Abdomen: + fundal height Fundus: + firm and + relation to umbilicus (2 below U) Results & Data Vital Signs (Past 12 Hours) Vital Signs Temp Pulse Resp BP 01/12/19 03:15 36.9 C 83 16 114/68 01/11/19 23:15 36.6 C 71 18 114/73 01/11/19 19:45 37.1 C 90 18 115/73
[2019-01-12 07:41] LABS: Hematocrit (blood only) 31.7 % (37-47); Hemoglobin 10.8 g/dL (12.0-16.0); Mean Corpuscular Hgb Conc 34.1 g/dL (32-36); Mean Platelet Volume 11.5 fL (7.4-10.4); Platelet Count 140 K/uL (130-400); RDW Coefficient of Variation 14.2 % (11.5-14.5); RDW Standard Deviation 43.7 fL (36.4-46.3); Red Blood Count 3.73 M/uL (4.2-5.4); White Blood Count 13.94 K/uL (4.8-10.8)
[2019-01-12] MEDS ORDERED: PRENATAL VITAMIN 1 TAB PO SCH (08:00)
[2019-01-12] MEDS: DOCUSATE SODIUM 100 MG CAP PO SCH (08:42)
[2019-01-12] MEDS ORDERED: DIPHTHERIA/TETANUS/PERTUSSIS 0.5 ML SYR/VIAL IM ONE (09:00)
[2019-01-12 15:25] VITALS: BP 110/66; PULSE 82; TEMP 98.4
[2019-01-12] MEDS ORDERED: BISACODYL 5 MG TABEC PO SCH (20:00)
== END 2019-01-12 17:55 | disposition home or self-care (01) | DRG 807 ==
LOC: OPB 05:52 → 4S1 05:55 → 4S2 16:54
DX: O70.0 First degree perineal laceration during delivery; Z37.0 Single live birth; Z3A.39 39 weeks gestation of pregnancy; O24.419 Gestational diabetes mellitus in pregnancy, unspecified control